=== PATIENT | female | born 2000 | race Caucasian/White ===

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

== ENCOUNTER → 2022-11-11 12:13 | Outpatient (CLI) | payer OTHER, SELFPAY ==
[2022-11-11 12:36] LABS: Add Manual Diff / Slide Review NO; Basophils Absolute Auto 100 /uL (0-100); Basophils Percent Auto 0.9 % (0-2); Eosinophils Absolute Auto 0 /uL (0-450); Eosinophils Percent Auto 0.1 % (2-4); Hematocrit 38.9 % (36-46); Hemoglobin 12.8 g/dL (12.0-16.0); Lymphocytes Absolute Auto 1100 /uL (1100-4500); Lymphocytes Percent Auto 17.1 % (25-40); Monocytes Absolute Auto 400 /uL (0-900); Monocytes Percent Auto 5.8 % (3-14); Neutrophils Absolute Auto 5100 /uL (1500-7000); Neutrophils Percent Auto 76.1 % (50-75); Platelet Count 196 X10^3/uL (150-400); Red Blood Cell Count 4.58 X10^6/uL (4.0-5.2); Red Cell Distribution Width 13.7 % (11.6-14.8); White Blood Cell Count 6.7 X10^3/uL (4.5-11.0)
[2022-11-11 13:41] LABS: Vitamin D 25 Hydroxy (D3) 21.5 ng/mL (30.0-100.0)
[2022-11-11 15:19] LABS: Free T4, Direct Thyroxine 1.59 ng/dL (0.78-2.19)
[2022-11-14 16:29] LABS: Folate 10.9 ng/mL (2.76-20.0); Vitamin B12 351 pg/mL (239-931)
== END ==
PROVIDERS: Family Provider Family Medicine; PCP Family Medicine; Referring Provider Family Medicine; Visit Provider Family Medicine
DX: R63.4 Abnormal weight loss (principal)
CPT/HCPCS: 36415; 82306; 82607; 82746; 84439; 84443; 85025

== ENCOUNTER 2022-11-16 13:29 | Emergency (ER) | payer OTHER, SELFPAY ==
[2022-11-16 14:16] VITALS: BP 157/102; PULSE 71; RESP 16; TEMP 36.9; O2SAT 99; BMI 17.5
--- NOTE | 2022-11-16 15:00 | DIET.CONS ---
Addendum entered by Fannie John 11/16/22 15:23: Pt requires total 1,300mL fluids (30mL/kg). Pt to flush tube with 60mL free water after each feed. Additional Fluids: Day 1-2: 955mL Day 3-4: 600mL Day 5 and beyond: 60mL free water flush after feeds. Original Note: Dietary Consultation Note Assessment: 22y F presenting to Emergency Department for feeding tube placement. Pt followed since by PCP Ranjit Jorge. Pt always has been picky eater, diagnosed with ARFID (avoidant restrictive feeding disorder) in 2017 and underwent intensive outpatient treatment for it. Pts provider concerned pt not receiving adequate intake via PO, desires placement of NG tube for enteral nutrition until pt sees [employer] via urgent referral through [facility] for consideration of G-tube placement. Pt currently seeing ARFID specialist weekly who referred her to PCP for referral to ED for feeding tube placement. Pt sees cardiology at [facility] for new dx POTS, this process has been ongoing since May 2022, the stress has been further limiting her PO intake from baseline of five foods: bread, cheese, goldfish crackers, milk, potatoes, juice, sometimes fruit in the summer to very limited foods and fluids. Dr. Jorge called this RD for help with enteral nutrition needs. Pt may need to be followed by home infusion [facility] for supplies. Ht: 157.48 cm Wt: 43.545 kg (-17% in 6mo, severe) BMI: 17.6 (underweight) UBW: 105-125# Nutrition Diagnosis: Severe Acute on Chronic Protein Calorie Malnutrition r/t disordered eating aeb pt with ARFID (avoidant restrictive feeding disorder), pt's POs meeting <25% EER x2w, BMI 17.6 (underweight), pt referred by PCP to ED for feeding tube placement. Interventions: 1. Recc placement of dobhoff NG tube for temporary enteral nutrition for this patient with acute on chronic ARFID and malnutrition until appointment with GI to discuss placement of g-tube. 2. Recc electrolyte repletion (K+, magnesium, phosphorus) if deficient prior to feed initiation. 3. Recc 100mg thiamin daily x5 days when initiating enteral nutrition. 4. Recc slow advancement of enteral nutrition starting at 350mL/d Jevity 1.2 on day 1 and 2, 700mL formula on days 3 and 4 and 1200mL formula from day 5 on to avoid refeeding syndrome. 5. Recc daily MVI. 6. Recc close f/u with PCP and ARFID specialist, referral to inpatient or outpatient eating therapy if needed. EER: 1,000-1200kcals/d (25-30kcals/kg per PCM), 50-60g PRO (1.2-1.4g/kg per PCM) Monitoring/Evaluations: Enteral formula tolerance Electronically Signed by: Fannie John 11/16/22 15:00 Clinical Dietitian [address] [address]
--- NOTE | 2022-11-16 16:03 | ED.NAVMDI ---
HPI - Nausea/Vomiting/Diarrhea General Chief complaint: Nausea/Vomiting/Diarrhea Stated complaint: Dr sent for feeding tube Time Seen by Provider: 11/16/22 15:47 Source: patient Mode of arrival: Ambulatory Limitations: no limitations History of Present Illness HPI Narrative: Patient is a 22-year-old female with history of issues with eating who saw her primary doctor today and was sent to the emergency department for placement of an NG tube. Patient is in agreement with this. She is also seen dietary prior to her visit here who is providing recommendations on tube feeding. She is here in the emergency department to have an NG tube placed. Related Data Home Medications Medication Instructions Recorded Confirmed Fluticasone Propionate (FLONASE) 1 spray intranasal QDAY ##0 12/12/10 03/22/19 norethindrone acetate 1 mg-ethinyl PO ##0 05/13/17 03/22/19 estradiol 20 mcg tablet (Microgestin) Previous Rx's Medication Instructions Recorded epinephrine 0.3 mg/0.3 mL 0.3 mg (0.3 mL) IM PRN PRN #1 pkg 06/20/17 injection, auto-injector (EpiPen 2-Dewey) azithromycin 250 mg tablet 1,000 mg PO ONCE #4 tabs 03/22/19 Allergies Allergy/AdvReac Type Severity Reaction Status Date / Time No Known Drug Allergies Allergy Verified 11/16/22 14:22 Review of Systems Constitutional Constitutional: Reports system reviewed and no additional complaints, except as documented Gastrointestinal Gastrointestinal: Reports system reviewed and no additional complaints, except as documented Patient History Social History Smoking Status: Never smoker Smoking Status: Never smoker alcohol intake frequency: holidays/special occasions only Substance Use Type: marijuana Exam Initial Vital Signs Initial Vital Signs: Vital Signs Temperature 98.5 F 11/16/22 14:16 Pulse Rate 71 11/16/22 14:16 Respiratory Rate 16 11/16/22 14:16 Blood Pressure 157/102 H 11/16/22 14:16 Pulse Oximetry 99 11/16/22 14:16 Oxygen Delivery Method Room Air 11/16/22 14:16 Const General: cooperative, comfortable and No ill appearing Resp Effort & Inspection: normal respiratory effort Cardio Rate: regular rate GI Inspection: non-distended Neuro General: patient alert and patient awake Extrem General: normal to inspection Course Orders Ordered: ED Orders 11/16/22 16:00 Basic Metabolic Panel Stat Magnesium Stat Phosphorous Stat 11/16/22 16:22 XR chest 1V Stat Discontinued Medications Lidocaine HCl (Lidocaine Viscous 2% 15 Ml Solution) 15 ml PO NOW ONE Stop: 11/16/22 16:05 Last Admin: 11/16/22 16:23 Dose: 15 ml Documented By: LORENZO Lidocaine HCl (Lidocaine Viscous 2% 15 Ml Solution) 15 ml PO NOW ONE Stop: 11/16/22 17:47 Vital Signs Vital signs: Vital Signs - 8 hr 11/16/22 14:16 11/16/22 18:10 Temperature 98.5 F Pulse Rate 71 75 Respiratory Rate 16 Blood Pressure 157/102 H 120/85 Pulse Oximetry 99 98 Oxygen Delivery Method Room Air Room Air MDM - Nausea/Vomiting/Diarrhea Lab Data Attestation: I reviewed the patient's lab results. 11/16/22 16:00 Labs: Lab Results 11/16/22 11/16/22 Range/Units 16:00 16:00 Sodium 140 (137-145) mmol/L Potassium 3.8 (3.4-5.1) mmol/L Chloride 106 (98-107) mmol/L Carbon Dioxide 25 (22-32) mmol/L BUN 11 (7-17) mg/dL Creatinine 0.60 (0.52-1.04) mg/dL Estimated GFR > 60 (>60) mL/min BUN/Creatinine Ratio 18.3 (6-22) Glucose 86 (70-100) mg/dL Calcium 9.0 (8.4-10.2) mg/dL Phosphorus 3.3 (2.5-4.5) mg/dL Magnesium 2.0 (1.6-2.3) mg/dL Imaging Data Chest x-ray: Radiologist's Impression: ROCEDURE:? XR CHEST 1V ? INDICATIONS:? NG TUBE PLACEMENT ? TECHNIQUE:? One view of the chest was acquired.? ? COMPARISON:? [facility], , CHEST 2 VIEW, 01/01/2012, 17:46. ? FINDINGS:? ? Surgical changes and devices:? Weighted tip enteric tube terminates in the region of the stomach. ? Lungs and pleura:? Lungs are clear.? No pleural effusions or pneumothorax.? ? Mediastinum:? Mediastinal contours appear normal.? Heart size is normal.? ? Bones and chest wall:? No suspicious bony lesions.? Overlying soft tissues appear unremarkable.? ? IMPRESSION:? Weighted tip enteric tube terminates in the stomach. ? Lungs are clear. MDM Narrative Medical decision making narrative: An 8 Romanian weighted NG tube was placed without issue. X-ray confirms placement. Primary provider will provide follow on prescriptions for tube feeding. She has 2 feeding available from dietitian already with her for the next 5 days. Will discharge patient home. Discharge Plan Departure Patient Disposition: Home Clinical Impression: Encounter for nasogastric (NG) tube placement Instructions: How to Care for Your Child's Nasogastric Tube Activity Restrictions/Additional Instructions: I do recommend that you follow-up with your primary doctor in follow all of the instructions given to by the charging crane operator. Return to the emergency department for new or worsening symptoms. Prescriptions: No Action Fluticasone Propionate (FLONASE) 1 spray Intranasal QDAY Qty: 0 norethindrone ac-eth estradiol [Microgestin 08/04 ()] 1-20 mg-mcg tablet PO Qty: 0 epinephrine [EpiPen 2-Dewey] 0.3 MG/0.3 ML auto-injector 0.3 mg IM PRN PRNQty: 1 0RF azithromycin 250 mg tablet 1,000 mg PO ONCE Qty: 4 0RF Referrals: Ranjit Jorge MD [Primary Care Provider] - Stand Alone Forms: Patient Portal/API
--- NOTE | 2022-11-16 16:22 | DI.RAD.S_ITS ---
PROCEDURE: XR CHEST 1V INDICATIONS: NG TUBE PLACEMENT TECHNIQUE: One view of the chest was acquired. COMPARISON: [facility], , CHEST 2 VIEW, 01/01/2012, 17:46. FINDINGS: Surgical changes and devices: Weighted tip enteric tube terminates in the region of the stomach. Lungs and pleura: Lungs are clear. No pleural effusions or pneumothorax. Mediastinum: Mediastinal contours appear normal. Heart size is normal. Bones and chest wall: No suspicious bony lesions. Overlying soft tissues appear unremarkable. IMPRESSION: Weighted tip enteric tube terminates in the stomach. Lungs are clear. Dictated by: Mirza Waller M.D. on 11/16/2022 at 17:39 Approved by: Mriza Waller M.D. on 11/16/2022 at 17:40
[2022-11-16] MEDS: LIDOCAINE VISCOUS 2% 15 ML SOLUTION PO (16:23)
[2022-11-16 16:34] LABS: BUN Creatinine Ratio 18.3 (6-22); Blood Urea Nitrogen 11 mg/dL (7-17); Carbon Dioxide 25 mmol/L (22-32); Chloride 106 mmol/L (98-107); Estimated Glomerular Filt Rate > 60 mL/min (>60); Glucose 86 mg/dL (70-100); HEMOLYSIS 49 (0-50); Phosphorous 3.3 mg/dL (2.5-4.5); Potassium 3.8 mmol/L (3.4-5.1); Sodium 140 mmol/L (137-145)
[2022-11-16 18:10] VITALS: BP 120/85; PULSE 75; O2SAT 98
== END 2022-11-16 18:25 | disposition home or self-care (01) ==
PROVIDERS: Emergency Provider Emergency Medicine; Family Provider Family Medicine; PCP Family Medicine
DX: Z46.59 Encounter for fitting and adjustment of other gastrointestinal appliance and device (principal)
CPT/HCPCS: 36415; 71045; 80048; 83735; 84100; 99283

== ENCOUNTER 2022-11-21 12:18 | Emergency (ER) | payer OTHER, SELFPAY ==
--- NOTE | 2022-11-21 | DI.RAD.S_ITS ---
PROCEDURE: XR CHEST 1V INDICATIONS: NG TUBE PLACEMENT TECHNIQUE: One view of the chest was acquired. COMPARISON: [facility], [facility], XR CHEST 1V, 11/16/2022, 16:19. [facility], [facility], CHEST 2 VIEW, 01/01/2012, 17:46. FINDINGS: Surgical changes and devices: Weighted tip enteric tube terminates in the region of the stomach. Lungs and pleura: Lungs are clear. No pleural effusions or pneumothorax. Mediastinum: Mediastinal contours appear normal. Heart size is normal. Bones and chest wall: No suspicious bony lesions. Overlying soft tissues appear unremarkable. IMPRESSION: Weighted tip enteric tube terminates in the region of the stomach. Lungs are clear. Dictated by: Mirza Waller M.D. on 11/21/2022 at 16:46 Approved by: Mirza Waller M.D. on 11/21/2022 at 16:46
[2022-11-21 12:43] VITALS: BP 115/74; PULSE 73; RESP 16; TEMP 36.9; O2SAT 100; BMI 18.0
--- NOTE | 2022-11-21 15:44 | ED.RECABL ---
HPI - Recheck/Abnormal Lab/Rx General Chief Complaint: Recheck/Abnormal Lab/Rx Stated Complaint: NG tube issue, says clogged or broken Time Seen by Provider: 11/21/22 15:11 Source: patient Mode of arrival: Ambulatory History of Present Illness HPI narrative: Patient is a 22-year-old female who has a restrictive eating disorder with complaint of NG tube not working. She was seen and evaluated here November 16 for placement of NG tube. She reports that is now clogged it does not drain or pull back and she can not use it. She is taken a sip or 2 of water. She reports that she is still urinating a little but has not had much in put Related Data Home Medications Medication Instructions Recorded Confirmed Fluticasone Propionate (FLONASE) 1 spray intranasal QDAY ##0 12/12/10 03/22/19 norethindrone acetate 1 mg-ethinyl PO ##0 05/13/17 03/22/19 estradiol 20 mcg tablet (Microgestin) Previous Rx's Medication Instructions Recorded epinephrine 0.3 mg/0.3 mL 0.3 mg (0.3 mL) IM PRN PRN #1 pkg 06/20/17 injection, auto-injector (EpiPen 2-Dewey) azithromycin 250 mg tablet 1,000 mg PO ONCE #4 tabs 03/22/19 Allergies Allergy/AdvReac Type Severity Reaction Status Date / Time No Known Drug Allergies Allergy Verified 11/16/22 14:22 Review of Systems Review of Systems ROS Unobtainable: All systems reviewed & are unremarkable except as noted in HPI and below Patient History Social History Smoking Status: Never smoker Smoking Status: Never smoker alcohol intake frequency: holidays/special occasions only Substance Use Type: marijuana Exam Initial Vital Signs Initial Vital Signs: Vital Signs Temperature 98.4 F 11/21/22 12:43 Pulse Rate 73 11/21/22 12:43 Respiratory Rate 16 11/21/22 12:43 Blood Pressure 115/74 11/21/22 12:43 Pulse Oximetry 100 11/21/22 12:43 Oxygen Delivery Method Room Air 11/21/22 12:43 GENERAL: Thin young 22-year-old female no acute distress CARDIOVASCULAR: peripheral pulses in tact, cap refill <2 sec EXTREMITIES: Normal range of motion, no clubbing or edema. Neurovascularly intact NEUROLOGICAL: Cranial nerves II through XII grossly intact. Normal gait and speech. SKIN: Warm, dry, no petechiae, no rashes or lesions. Course Orders Ordered: Discontinued Medications Lidocaine HCl (Lidocaine Viscous 2% 15 Ml Solution) 15 ml PO NOW ONE Stop: 11/21/22 16:14 Last Admin: 11/21/22 16:38 Dose: 15 ml Documented By: LORENZO Vital Signs Vital signs: Vital Signs - 8 hr 11/21/22 12:43 Temperature 98.4 F Pulse Rate 73 Respiratory Rate 16 Blood Pressure 115/74 Pulse Oximetry 100 Oxygen Delivery Method Room Air MDM - Recheck/Abnormal Lab/Rx Imaging Data Chest x-ray: My Impression: NG in place MDM Narrative Medical decision making narrative: Patient 22-year-old female here for NG replacement. Nurse tried to trouble shoe NG but unsuccessful. It was pulled and replaced. Confirmed by chest x-ray. Discharge Plan Departure Patient Disposition: Home Clinical Impression: Encounter for nasogastric (NG) tube placement Instructions: Enteral Feeding Activity Restrictions/Additional Instructions: *You have been diagnosed with feeding tube placed *What to do: Please be sure to stay hydrated *Continue to take medications as directed *Follow up with your primary care provider in 2-3 days or call [phone] *Return to ER if you should have any new, worsening or concerning symptoms Prescriptions: No Action Fluticasone Propionate (FLONASE) 1 spray Intranasal QDAY Qty: 0 norethindrone ac-eth estradiol [Microgestin 08/04 ()] 1-20 mg-mcg tablet PO Qty: 0 epinephrine [EpiPen 2-Dewey] 0.3 MG/0.3 ML auto-injector 0.3 mg IM PRN PRNQty: 1 0RF azithromycin 250 mg tablet 1,000 mg PO ONCE Qty: 4 0RF Referrals: Ranjit Jorge MD [Primary Care Provider] - Stand Alone Forms: Patient Portal/API
[2022-11-21] MEDS: LIDOCAINE VISCOUS 2% 15 ML SOLUTION PO (16:38)
== END 2022-11-21 17:11 | disposition home or self-care (01) ==
PROVIDERS: Emergency Provider Emergency Medicine; Family Provider Family Medicine; PCP Family Medicine
DX: Z46.59 Encounter for fitting and adjustment of other gastrointestinal appliance and device (principal); T85.598A Other mechanical complication of other gastrointestinal prosthetic devices, implants and grafts, initial encounter
CPT/HCPCS: 71045; 99283

== ENCOUNTER 2022-11-30 12:15 | Observation (INO) | payer OTHER, SELFPAY ==
[2022-11-30 12:40] VITALS: BP 117/75; PULSE 78; RESP 18; TEMP 37.2; O2SAT 99; BMI 18.3
--- NOTE | 2022-11-30 19:01 | ED.RECABL ---
HPI - Recheck/Abnormal Lab/Rx General Chief Complaint: Recheck/Abnormal Lab/Rx Stated Complaint: Feeding tube issues, came out Time Seen by Provider: 11/30/22 15:24 Source: patient Mode of arrival: Ambulatory History of Present Illness HPI narrative: Patient here with mother. This is the 3rd time the feeding tube/nasogastric tube has fallen out in 3 weeks. Patient has history of low thyroid and malnutrition. She has been working with primary care Dr. Ranjit Jorge as well as michael with dietitian here at this hospital. She has failed outpatient management. The in goal was to get a feeding tube/G-tube by surgery. At this time her counselor has spoken with primary care as encouraged for G-tube placement. Patient is motivated to have this done. Before replacing the NG tube they would like surgical consult. Otherwise no other complaints. She states she gets nauseous with the NG tube and started vomiting and it falls out. Related Data Home Medications Medication Instructions Recorded Confirmed dextroamphetamine-amphetamine ER 30 mg PO DAILY 11/30/22 11/30/22 30 mg 24hr capsule,extend release (Adderall XR) epinephrine 0.3 mg/0.3 mL 0.3 mg IM PRN PRN Allergic Reaction 11/30/22 11/30/22 injection, auto-injector (EpiPen 2-Dewey) gabapentin 100 mg capsule 100 mg PO TID 11/30/22 11/30/22 hydroxyzine HCl 10 mg tablet 10 mg PO QID 11/30/22 11/30/22 Allergies Allergy/AdvReac Type Severity Reaction Status Date / Time No Known Drug Allergies Allergy Verified 11/30/22 12:43 Review of Systems Review of Systems Narrative: GENERAL: negative chills, fatigue, malaise, fever, sweats. HEENT: negative sinus pain, ear pain, sore throat RESPIRATORY: negative dyspnea, cough CARDIOVASCULAR: negative chest pain, palpitations GASTROINTESTINAL: negative nausea, vomiting, abdominal pain : negative dysuria, frequency, hematuria MUSCULOSKELETAL: negative muscle or bony pain SKIN: negative rash, skin lesions NEUROLOGIC: negative weakness, numbness ROS Unobtainable: All systems reviewed & are unremarkable except as noted in HPI and below Patient History Social History household members: family Smoking Status: Never smoker alcohol intake: current Smoking Status: Never smoker alcohol intake frequency: holidays/special occasions only Substance Use Type: marijuana Exam Narrative Exam Narrative: GENERAL: in no distress, not toxic not dyspneic HEAD: Normocephalic. EYES: Pupils equal round ENT: Mucous membranes moist. NECK: Trachea midline. CARDIOVASCULAR: Regular rate and rhythm without murmurs RESPIRATORY: Clear to auscultation. Breath sounds equal bilaterally. No wheezes, rales, or rhonchi. GASTROINTESTINAL: Abdomen soft, non-tender bowel sounds are present no peritoneal signs EXTREMITIES: No gross deformities. BACK: No flank tenderness. NEURO: AOx4. SKIN: Warm and dry PSYCH: Not anxious, is cooperative Initial Vital Signs Initial Vital Signs: Vital Signs Temperature 99.0 F 11/30/22 12:40 Pulse Rate 78 11/30/22 12:40 Respiratory Rate 18 11/30/22 12:40 Blood Pressure 117/75 11/30/22 12:40 Pulse Oximetry 99 11/30/22 12:40 Oxygen Delivery Method Room Air 11/30/22 12:40 Course Orders Ordered: ED Orders 11/30/22 19:45 CBC Auto Diff [Complete Blood Count AUTO DIFF] Stat CMP [Comprehensive Metabolic Panel] Stat COVID19 - ADMIT (INSTRUMENTAL TEACHER swab/PCR) Stat Albuterol (Albuterol 2.5 Mg/3 Ml Neb (Adult)) 2.5 mg INH RTQ4HR PRN PRN Reason: Shortness Of Breath Cyclobenzaprine HCl (Cyclobenzaprine 10 Mg Tablet) 5 mg PO Q8HR ARLEN Gabapentin (Gabapentin 100 Mg Capsule) 100 mg PO TID ARLEN Hydroxyzine Pamoate (Hydroxyzine Pamoate 25 Mg Capsule) 25 mg PO Q6HR PRN PRN Reason: Nausea Sodium Chloride (Normal Saline 0.9%) 1,000 mls @ 125 mls/hr IV CONT ARLEN Last Infusion: 11/30/22 21:12 Dose: 0 mls/hr Documented By: Admin: 11/30/22 20:05 Dose: 125 mls/hr Documented By: YESSICA Sodium Chloride (Normal Saline 0.45%) 1,000 mls @ 125 mls/hr IV CONT ARLEN Ondansetron HCl (Ondansetron 4 Mg/2 Ml Inj) 4 mg IV Q4HR PRN PRN Reason: Nausea And Vomiting Discontinued Medications Albuterol (Albuterol Hfa Mdi 60 Puff/8 Gm Inhaler) 2 puff INH RTQ4HR PRN PRN Reason: Shortness Of Breath Vital Signs Vital signs: Vital Signs - 8 hr 11/30/22 19:17 Pulse Rate 65 Respiratory Rate 16 Blood Pressure 119/72 Pulse Oximetry 99 Oxygen Delivery Method Room Air MDM - Recheck/Abnormal Lab/Rx Lab Data 11/30/22 19:45 11/30/22 19:[address] [facility] Narrative Medical decision making narrative: Patient here with mother. This is the 3rd time the feeding tube/nasogastric tube has fallen out in 3 weeks. Patient has history of low thyroid and malnutrition. She has been working with primary care Dr. Ranjit Jorge as well as michael with dietitian here at this hospital. She has failed outpatient management. The in goal was to get a feeding tube/G-tube by surgery. At this time her counselor has spoken with primary care as encouraged for G-tube placement. Patient is motivated to have this done. Before replacing the NG tube they would like surgical consult. Otherwise no other complaints. She states she gets nauseous with the NG tube and started vomiting and it falls out. After history and exam possible replacement NG-tube however will need to page general surgery for consult [facility] CC: NG tube displacement Complicating co-morbidities: Hypothyroidism Data collected from: Mother and patient Medical records reviewed: Seen here November 16, 2022 November 21, 2022 for replacement of NG tube Differential considered: Includes but not limited to failure to thrive malnutrition Exam documented above, pertinent findings include: Nontender abdomen Lab Test results independently reviewed as above. Pertinent findings: WBC 6.7 hemoglobin 12.9 hematocrit 38 sodium 140 potassium 3.9 GFR greater than 60 AST 25 ALT 17, negative Imaging studies independently reviewed: None indicated Consultations: 7:[address] Richardson, general surgery, he will see patient in consult, possibly schedule patient for G-tube tomorrow, if not then on Sunday. Spoke with primary care on-call, Dr. Bunn, she will admit patient Treatments: Normal saline Re-evaluations: Spoke with patient and mother. They do desire G-tube placement as NG tube trials have failed Discussion: Upright for admission. Patient has failed outpatient trials NG nutrition. Counselor and michael with dietary have recommended patient get G-tube as well. Overall Dr. Jorge has planned for patient to have G-tube placement. Patient has lost at least 30 lb in the last 6-8 months. Patient has diagnosis of ARIF, a sensory disorder that prohibits dietary needs Diagnosis: Failure to thrive Discharge Plan Departure Patient Disposition: Admitted as Observation Clinical Impression: Adult failure to thrive Admit Date/Time: 11/30/22 19:30 Admit Provider: Ranjit Jorge
--- NOTE | 2022-11-30 19:12 | PC.NURSE ---
Pt with mom at bedside. Reports recurrent issues with NG feeding tube malfunctioning/now dislodged due to violent vomiting. Has had multiple visits for the same issue. Pt states she is interested in G tube placement. Pt also reports weight loss and poor nutrition due to feeding tube issues. Pt is tearful while talking about all the visits this has required.
[2022-11-30 19:17] VITALS: BP 119/72; PULSE 65; RESP 16; O2SAT 99
[2022-11-30 20:04] LABS: Add Manual Diff / Slide Review NO; Basophils Absolute Auto 0 /uL (0-100); Basophils Percent Auto 0.7 % (0-2); Eosinophils Absolute Auto 0 /uL (0-450); Eosinophils Percent Auto 0.5 % (2-4); Hemoglobin 12.9 g/dL (12.0-16.0); Lymphocytes Absolute Auto 1700 /uL (1100-4500); Lymphocytes Percent Auto 24.9 % (25-40); Mean Corpuscular HGB Conc 33.9 % (30-36); Mean Corpuscular Hemoglobin 28.2 PG (26-34); Mean Corpuscular Volume 83.3 fL (80-100); Monocytes Absolute Auto 400 /uL (0-900); Monocytes Percent Auto 6.6 % (3-14); Neutrophils Absolute Auto 4500 /uL (1500-7000); Neutrophils Percent Auto 67.3 % (50-75); Platelet Count 224 X10^3/uL (150-400); Red Blood Cell Count 4.56 X10^6/uL (4.0-5.2); Red Cell Distribution Width 13.4 % (11.6-14.8); White Blood Cell Count 6.7 X10^3/uL (4.5-11.0)
[2022-11-30] MEDS: SODIUM CHLORIDE 0.9% 1,000 ML 125 ML IV (20:05)
[2022-11-30 20:17] LABS: Alanine Aminotransferase 17 IU/L (<35); Albumin 4.7 g/dL (3.5-5.0); Albumin Globulin Ratio 1.6 (1.0-2.8); Alkaline Phosphatase 72 U/L (38-126); Aspartate Aminotransferase 25 IU/L (14-36); BUN Creatinine Ratio 21.3 (6-22); Bilirubin Total 0.7 mg/dL (0.2-1.3); Blood Urea Nitrogen 13 mg/dL (7-17); Calcium 9.3 mg/dL (8.4-10.2); Carbon Dioxide 23 mmol/L (22-32); Chloride 106 mmol/L (98-107); Estimated Glomerular Filt Rate > 60 mL/min (>60); Glucose 77 mg/dL (70-100); HEMOLYSIS < 15 (0-50); Potassium 3.9 mmol/L (3.4-5.1); Sodium 140 mmol/L (137-145); Total Protein 7.7 g/dL (6.3-8.2)
[2022-11-30 20:19] LABS: COVID19 - ADMIT (NP swab/PCR) Negative (Negative)
[2022-11-30 21:00] LABS: Pregnancy Test Serum,Qual Negative (Negative)
[2022-11-30 21:10] VITALS: BP 119/76; PULSE 68; RESP 20; TEMP 37.2; O2SAT 100; BMI 18.1
[2022-11-30] MEDS: SODIUM CHLORIDE 0.45% 1,000 ML 125 ML IV (22:17)
[2022-11-30] MEDS: hydrOXYzine pamoate 25 MG CAPSULE PO (22:17)
[2022-12-01] VITALS (17 sets, daily range): BP systolic 83–140; BP diastolic 47–90; PULSE 57–98; RESP 16–24; TEMP 36.2–37.3; O2SAT 22–100; BMI 18.1
[2022-12-01] MEDS: SODIUM CHLORIDE 0.45% 1,000 ML 125 ML IV (05:49)
[2022-12-01] MEDS: CYCLOBENZAPRINE 10 MG TABLET 5 MG PO ×2 (05:55→14:34)
[2022-12-01 07:24] LABS: Add Manual Diff / Slide Review NO; Basophils Absolute Auto 0 /uL (0-100); Basophils Percent Auto 0.6 % (0-2); Eosinophils Absolute Auto 100 /uL (0-450); Eosinophils Percent Auto 1.2 % (2-4); Hematocrit 37.8 % (36-46); Hemoglobin 12.8 g/dL (12.0-16.0); Lymphocytes Absolute Auto 1400 /uL (1100-4500); Lymphocytes Percent Auto 28.7 % (25-40); Mean Corpuscular HGB Conc 33.9 % (30-36); Mean Corpuscular Hemoglobin 28.7 PG (26-34); Mean Corpuscular Volume 84.4 fL (80-100); Monocytes Absolute Auto 300 /uL (0-900); Neutrophils Absolute Auto 3100 /uL (1500-7000); Neutrophils Percent Auto 62.5 % (50-75); Platelet Count 203 X10^3/uL (150-400); Red Blood Cell Count 4.47 X10^6/uL (4.0-5.2); Red Cell Distribution Width 13.3 % (11.6-14.8); White Blood Cell Count 4.9 X10^3/uL (4.5-11.0)
[2022-12-01 07:37] LABS: Alanine Aminotransferase 18 IU/L (<35); Albumin 3.8 g/dL (3.5-5.0); Albumin Globulin Ratio 1.4 (1.0-2.8); Alkaline Phosphatase 68 U/L (38-126); Aspartate Aminotransferase 27 IU/L (14-36); BUN Creatinine Ratio 18.5 (6-22); Bilirubin Total 0.7 mg/dL (0.2-1.3); Blood Urea Nitrogen 12 mg/dL (7-17); Calcium 8.5 mg/dL (8.4-10.2); Carbon Dioxide 24 mmol/L (22-32); Chloride 105 mmol/L (98-107); Estimated Glomerular Filt Rate > 60 mL/min (>60); Globulin 2.7 g/dL (1.7-4.1); Glucose 79 mg/dL (70-100); HEMOLYSIS < 15 (0-50); Potassium 3.4 mmol/L (3.4-5.1); Sodium 137 mmol/L (137-145); Total Protein 6.5 g/dL (6.3-8.2)
--- NOTE | 2022-12-01 09:11 | P.HP_ITS ---
History of Present Illness History of Present Illness Date Patient Seen: 12/01/22 Time Patient Seen: 09:11 Chief complaint: Feeding tube issues, came out Narrative: PT with extensive complex sensory processing issues with hyperreflexive gag function and failure to thrive presented to ED with third time of NG tube falling out this is her primary source of calories. Surgery consulted and exploring OR availability for PEG placement. If avilable will proceed, keep NPO for now - if unavailable will look to schedule outpatient for next week and think about NGT replacement for discharge plan. VSS, labs look ok. PFSH Social History household members: family Smoking Status: Never smoker alcohol intake: current Meds Home Medications and Allergies Home Medications Medication Instructions Recorded Confirmed Type dextroamphetamine-amphetamine ER 30 mg PO DAILY 11/30/22 11/30/22 History 30 mg 24hr capsule,extend release (Adderall XR) epinephrine 0.3 mg/0.3 mL 0.3 mg IM PRN PRN Allergic Reaction 11/30/22 11/30/22 History injection, auto-injector (EpiPen 2-Dewey) gabapentin 100 mg capsule 100 mg PO TID 11/30/22 11/30/22 History hydroxyzine HCl 10 mg tablet 10 mg PO QID 11/30/22 11/30/22 History Allergies Allergy/AdvReac Type Severity Reaction Status Date / Time No Known Drug Allergies Allergy Verified 11/30/22 12:43 Review of Systems Review of Systems Narrative: all systems reviewed and negative except as otherwise documented in HPI Exam Vital Signs (past 8 hours): - 12/01/22 06:19 12/01/22 08:11 Temperature 97.3 F L 98.4 F Pulse Rate 57 L 63 Respiratory Rate 17 16 Blood Pressure 105/67 97/64 Pulse Oximetry 100 100 Oxygen Flow Rate 0 0 Oxygen Delivery Method Room Air Oxygen Flow Rate 0 Narrative Exam Narrative: alert female in no distress on bed Const Nutritional Appearance: thin HENMT Head: normocephalic and atraumatic Resp Other: clear to auscultation bilaterally Cardio Other: regular rate and rhythm, S1/S2 GI Other: active bowel sounds nontender Neuro General: patient alert, patient awake, patient oriented x3 and moves all extremities Psych Speech and Movement: speech and movement normal Objective Labs 12/01/22 05:55 12/01/22 05:55 Labs: Laboratory Results - last 24 hr 11/30/22 11/30/22 11/30/22 19:45 19:45 19:45 WBC 6.7 RBC 4.56 Hgb 12.9 Hct 38.0 MCV 83.3 MCH 28.2 MCHC 33.9 RDW 13.4 Plt Count 224 Neut % (Auto) 67.3 Lymph % (Auto) 24.9 L [place] % (Auto) 6.6 Eos % (Auto) 0.5 L Baso % (Auto) 0.7 Neut # (Auto) 4500 Lymph # (Auto) 1700 [place] # (Auto) 400 Eos # (Auto) 0 Baso # (Auto) 0 Sodium 140 Potassium 3.9 Chloride 106 Carbon Dioxide 23 BUN 13 Creatinine 0.61 Estimated GFR > 60 BUN/Creatinine Ratio 21.3 Glucose 77 Calcium 9.3 Total Bilirubin 0.7 AST 25 ALT 17 Alkaline Phosphatase 72 Total Protein 7.7 Albumin 4.7 Globulin 3.0 Albumin/Globulin Ratio 1.6 Serum , Qual SARS-CoV-2 (PCR) Negative 11/30/22 12/01/22 12/01/22 19:45 05:55 05:55 WBC 4.9 RBC 4.47 Hgb 12.8 Hct 37.8 MCV 84.4 MCH 28.7 MCHC 33.9 RDW 13.3 Plt Count 203 Neut % (Auto) 62.5 Lymph % (Auto) 28.7 [place] % (Auto) 7.0 Eos % (Auto) 1.2 L Baso % (Auto) 0.6 Neut # (Auto) 3100 Lymph # (Auto) 1400 [place] # (Auto) 300 Eos # (Auto) 100 Baso # (Auto) 0 Sodium 137 Potassium 3.4 Chloride 105 Carbon Dioxide 24 BUN 12 Creatinine 0.65 Estimated GFR > 60 BUN/Creatinine Ratio 18.5 Glucose 79 Calcium 8.5 Total Bilirubin 0.7 AST 27 ALT 18 Alkaline Phosphatase 68 Total Protein 6.5 Albumin 3.8 Globulin 2.7 Albumin/Globulin Ratio 1.4 Serum , Qual Negative SARS-CoV-2 (PCR) Assessment & Plan Assessment & Plan narrative: #avoidant restrictive feeding disorder #functional anorexia #failure to thrive PT has been requiring NG tubefeeds but NG tube is constantly getting displaced this is her only source of calories, Dr. Richardson is evaluating for PEG placement today Keep NPO until then continue meds #MDD stable continue home meds #ADHD hold home meds while inpt PCP: Ania Diet: NPO MDM: Lupe Petty [phone] or [phone] - I spoke with them regarding plan Quality VTE Deep Vein Thrombosis/Pulmonary Embolism Present on Admission: No
[2022-12-01] MEDS: GABAPENTIN 100 MG CAPSULE PO ×3 (09:24→20:31)
--- NOTE | 2022-12-01 11:30 | DIET.CONS ---
Addendum entered by Emilee Presley 12/01/22 17:54: Reviewed nutrition recs, flushes, and fluid needs for PEG with pt prior to PEG placement. Pt verbalized understanding. RD f/u 1 day. Original Note: Dietary Consultation Note Admission Date: 11/30/2022 19:30 Assessment: 22[address] team. Plan for PEG placement today. States NG keeps being displaced after about one week of use d/t vomiting. Endorses 720kcal min of feeds per day + one snack. Approx 1000-1200kcals per day. Barriers to full feeds is the time it has taken with gravity feeds, especially as she tries to hold a job. States she just received her TF pump today with Jevity 1.2 formula. This along with switch to PEG should help with time it takes for her to complete feeds. +1.587kg since 11/16 consult. Discussed coordination with [facility] with CM. Ht: 157.48 cm Wt: 45.132 kg BMI: 18.1 Last BM: 11/30/22 (11/30/22 21:10) MNA: 5 Prateek Score: 19 Diet: 12/01/22 09:10 NPO Diet Diet Modifications: NPO Type: NPO NOW for Procedure Labs: RBC 4.47 X10^6/uL (4.0-5.2) 12/01/22 05:55 Hgb 12.8 g/dL (12.0-16.0) 12/01/22 05:55 Hct 37.8 % (36-46) 12/01/22 05:55 Creatinine 0.65 mg/dL (0.52-1.04) 12/01/22 05:55 Nutrition Diagnosis: Severe Acute on Chronic Protein Calorie Malnutrition r/t disordered eating aeb pt with ARFID (avoidant restrictive feeding disorder) BMI 18.1 (underweight), h/o pt referred by PCP to ED for feeding tube placement Interventions: 1. Recc placement of PEG tube for enteral nutrition for this patient with acute on chronic ARFID and malnutrition 2. Recc electrolyte repletion prn 3. Recc advancement of enteral nutrition as tolerated. May start at 1000-1200mL/d Jevity 1.2 on day 1-2 and between 1200-1300mL formula from day 3 going forward as tolerated. Reduced risk of refeeding with home TF use and approx [phone] kcals per day reported. 4. Recc daily MVI. 5. Recc close f/u with PCP and ARFID specialist, referral to inpatient or outpatient eating therapy if needed. EER: 1400-1600kcals/d (30-35kcal/kg per PCM and h/o disordered eating) 60-73g PRO (1.3-1.6g/kg per PCM and h/o disordered eating) 1350ml fluids per day (30ml/kg- including PO) 872-1065ml fluids from feed water 30-60ml/flush after bolus 285-478ml fluids needed from flushes and/or PO Monitoring/Evaluations: RD f/u 2-3 days, monitoring tolerance of formula Electronically Signed by: Emilee Presley 12/01/22 11:30 Clinical Dietitian [address] [address]
[2022-12-01] MEDS: POTASSIUM CHLORIDE IN WATER 10 MEQ/100 ML PIGGYBACK 100 MEQ IV ×2 (11:45→12:18)
--- NOTE | 2022-12-01 12:43 | P.CONS_ITS ---
History of Present Illness Consult details Date Patient Seen: 12/01/22 Time Patient Seen: 12:43 Chief complaint: Feeding tube issues, came out Narrative: 22-year-old woman admitted to the hospital with failure to thrive. She has been working with her primary care provider Dr. Jorge for quite some time in regards to her malnutrition. Apparently she has avoidant restrictive feeding disorder and she has developed severe protein malnutrition due to her inability to eat. She she has a normal swallow function. She has been receiving nasogastric tube feeds for the past 1 month but has recurrent issues with the NG tube becoming dislodged. General surgery is consulted for feeding tube placement. Meds Home Medications and Allergies Home Medications Medication Instructions Recorded Confirmed Type dextroamphetamine-amphetamine ER 30 mg PO DAILY 11/30/22 11/30/22 History 30 mg 24hr capsule,extend release (Adderall XR) epinephrine 0.3 mg/0.3 mL 0.3 mg IM PRN PRN Allergic Reaction 11/30/22 11/30/22 History injection, auto-injector (EpiPen 2-Dewey) gabapentin 100 mg capsule 100 mg PO TID 11/30/22 11/30/22 History hydroxyzine HCl 10 mg tablet 10 mg PO QID 11/30/22 11/30/22 History Allergies Allergy/AdvReac Type Severity Reaction Status Date / Time No Known Drug Allergies Allergy Verified 11/30/22 12:43 Exam Vital Signs (past 8 hours): - 12/01/22 06:19 12/01/22 08:11 Temperature 97.3 F L 98.4 F Pulse Rate 57 L 63 Respiratory Rate 17 16 Blood Pressure 105/67 97/64 Pulse Oximetry 100 100 Oxygen Flow Rate 0 0 Oxygen Delivery Method Room Air Oxygen Flow Rate 0 Narrative Exam Narrative: General adult woman cachectic alert oriented no acute distress Chest nonlabored respiration Abdomen soft nontender nondistended Extremities warm well perfused Objective Labs 12/01/22 05:55 12/01/22 05:55 Labs: Laboratory Results - last 24 hr 11/30/22 11/30/22 11/30/22 19:45 19:45 19:45 WBC 6.7 RBC 4.56 Hgb 12.9 Hct 38.0 MCV 83.3 MCH 28.2 MCHC 33.9 RDW 13.4 Plt Count 224 Neut % (Auto) 67.3 Lymph % (Auto) 24.9 L [place] % (Auto) 6.6 Eos % (Auto) 0.5 L Baso % (Auto) 0.7 Neut # (Auto) 4500 Lymph # (Auto) 1700 [place] # (Auto) 400 Eos # (Auto) 0 Baso # (Auto) 0 Sodium 140 Potassium 3.9 Chloride 106 Carbon Dioxide 23 BUN 13 Creatinine 0.61 Estimated GFR > 60 BUN/Creatinine Ratio 21.3 Glucose 77 Calcium 9.3 Total Bilirubin 0.7 AST 25 ALT 17 Alkaline Phosphatase 72 Total Protein 7.7 Albumin 4.7 Globulin 3.0 Albumin/Globulin Ratio 1.6 Serum , Qual SARS-CoV-2 (PCR) Negative 11/30/22 12/01/22 12/01/22 19:45 05:55 05:55 WBC 4.9 RBC 4.47 Hgb 12.8 Hct 37.8 MCV 84.4 MCH 28.7 MCHC 33.9 RDW 13.3 Plt Count 203 Neut % (Auto) 62.5 Lymph % (Auto) 28.7 [place] % (Auto) 7.0 Eos % (Auto) 1.2 L Baso % (Auto) 0.6 Neut # (Auto) 3100 Lymph # (Auto) 1400 [place] # (Auto) 300 Eos # (Auto) 100 Baso # (Auto) 0 Sodium 137 Potassium 3.4 Chloride 105 Carbon Dioxide 24 BUN 12 Creatinine 0.65 Estimated GFR > 60 BUN/Creatinine Ratio 18.5 Glucose 79 Calcium 8.5 Total Bilirubin 0.7 AST 27 ALT 18 Alkaline Phosphatase 68 Total Protein 6.5 Albumin 3.8 Globulin 2.7 Albumin/Globulin Ratio 1.4 Serum , Qual Negative SARS-CoV-2 (PCR) [facility] Social History household members: family Tobacco & Substance Use Smoking Status: Never smoker alcohol intake: current Assessment & Plan Assessment and plan (1) Avoidant and restrictive food intake disorder: Status: Acute Assessment & Plan narrative: 22-year-old woman with failure to thrive and severe protein malnutrition secondary to avoidant and restrictive food intake disorder. She has failed tube feedings via a nasogastric tube and the patient as well as her providers are requesting a percutaneous endoscopic gastrostomy tube placement. Overview of the operation was discussed with the patient. Operative risks including hemorrhage, infection, damage to surrounding structures, gastric leak an anesthetic complications were discussed. Questions have been answered and she is in agreement with this plan. -OR today for PEG
[2022-12-01] MEDS: SODIUM CHLORIDE 0.9% 1,000 ML 125 ML IV (13:50)
--- NOTE | 2022-12-01 14:25 | CM.DANOTE ---
Patient is a 22 yo female who was admitted on 11/30/22 for Feeding Issues. Pt has REG PPO for insurance and her PCP is Dr. Ranjit Jorge. EMR was reviewed. Per MD, pt with ongoing sensory issues which has been limiting her ability to get adequate nutrition and attempted tube feeding outpt and pt failed and therefore admitted for PEG tube placement for nutrition. Per Tour Director, been attempting to coordinate formula with [facility] and PCP prior to admission. Pt's current formulary will remain the same at d/c with PEG and they will put updated note. SW called [facility] Janis [phone] and she confirms they mailed out her formula and should arrive by this weekend. They will just need the d/c summary and PEG placement note faxed to them at discharge but did not know which fax number yet at this time. SW met bedside with pt and explained role and she confirms she moved back in with her mom in [place] recently due to her ongoing nutrition needs/challenges. Pt confirms that she just received her formula from [facility] today and is aware of PEG placement in OR this evening around 1700. Pt currently does not anticipate any needs and states her mom is supportive. Plan: SW to follow for PEG placement this evening and confirmation of adequate nutrition intake before plan of d/c home with [facility] for ongoing enteral feeding and faxing d/c packet at discharge. MARSHA Robles Discharge Planning/Care Management CM Discharge Assessment Start: 12/01/22 14:24 Freq: Status: Active Protocol: Document 12/01/22 14:24 BF (Rec: 12/01/22 14:25 [id number]) Discharge Planning Assessment Assigned Stone Grader MARSHA Galloway DPOA/Assigned Designee Name informally mother Contact Information [phone] Advance Directives? No Advance Directives on File No History Provided By Patient,Medical Record Has Patient been admitted in last 30 No days? Prior Living Arrangements House Household Members family Type of transporation used prior to Drives own vehicle admit Independent with ADL's Yes Is patient alert and oriented? Yes Needs Assistance With Managing Medications Caregiver for Another No Comment Open recently with [facility] for enteral feeding Discharge Plan Home [facility] IV Therapy Transportation Arrangement mother to transport Additional Comment Fax d/c summary, PEG note, and order to [facility] at d/c Whiteboard Updated in Patient Room with Yes name and ext. # of Stone Grader Review Status In Process Please Provide Date Initial DC 12/01/22 Assessment Was Performed Next Review Type Continued Stay Review
[2022-12-01] MEDS: hydrOXYzine pamoate 25 MG CAPSULE PO ×2 (14:35→20:31)
--- NOTE | 2022-12-01 15:37 | PC.NURSE ---
Day shift: Pt down to surgery for PEG placement at approx 1535.
--- NOTE | 2022-12-01 16:52 | SUR.OPER ---
Supine on padded stretcher in ENDO room, head on pillow, arms tucked at sides, legs uncrossed.
--- NOTE | 2022-12-01 16:53 | SUR.OPER ---
Lidocaine 1% 5ml vial used from PE tube kit for PEG tube placement.
--- NOTE | 2022-12-01 17:13 | P.OP_ITS ---
Operative Date/Time/Diagnoses Date of procedure: 12/01/22 Time of procedure: 17:13 Pre-op diagnosis: Failure to thrive Post-op diagnosis: same Procedure & Clinicians Procedure: Percutaneous endoscopic gastrostomy tube placement Same procedure as scheduled: Yes Indications: 22-year-old woman with failure to thrive and severe protein calorie m alnutrition. She is here today for a PEG tube placement. Surgeon: Jeremías Richardson Anesthesia Type: General Operative Notes Findings: Bumper at 3 cm to the skin. Peg tube rotates easily and Estimated Blood Loss (mL): 10 Procedure in detail: Patient was brought to the operating room and placed supine on the bed. Anesthesia was induced. He was prepped and draped in sterile fashion. Time-out was performed. The endoscope was inserted into the mouth and advanced down the esophagus into the stomach. Stomach was insufflated and a spot on the left upper quadrant was selected over the greater curvature. Skin was anesthetized and a incision was made and then the needle was introduced through the skin into the stomach. The guidewire was then introduced through the needle and was grasped with the wire within the scope and the scope was removed. This point the PEG tube was attached to the guidewire and then the tube was then drawn through the mouth into the stomach and out through the anterior abdominal wall. The bumper plate was applied and it was snug at 3 cm from the skin. The endoscope was then reinserted into the stomach and I observed that the PEG tube rotated freely. Patient tolerated the procedure well and was transferred to recovery in stable condition. Complications: none Post-operative Condition: stable Disposition: Acute Care
[2022-12-01] MEDS: LACTATED RINGERS 1,000 ML 42 ML IV (17:18)
--- NOTE | 2022-12-01 18:02 | PC.NURSE ---
Day shift: Pt back in room from PACU at approx 1800. PEG tube site patent with scant amount of shadow drainage present at PEG side. VS remain WNL. RA 99%. She did ask, with Dr Rios present, when does the pain go away?. Will continue with post-op plan of care. Call light in reach. Bed alarm is on. Pt also wanting to void upon arrival.
[2022-12-01] MEDS: ACETAMINOPHEN 325 MG TABLET 650 MG PO (18:12)
[2022-12-01] MEDS: HYDROMORPHONE 0.5 MG INJ IV ×2 (18:49→20:31)
[2022-12-01] MEDS: OXYCODONE IR 10 MG TABLET PO (21:02)
[2022-12-01] MEDS: ONDANSETRON 4 MG/2 ML INJ IV (21:03)
--- NOTE | 2022-12-01 22:31 | PC.NURSE ---
cnc machinist 2nd shift: Patient's pain not controlled with IV 0.5mg dilaudid and PO tylenol. Contacted on-call MD ricks - Dr. Rios - and he ordered 10mg PO oxycodone Q4hrs PRN pain. This provided improved pain control, per patient report. Dr. Rios also ok'ed patient to eat by mouth, no need to be NPO. Plan for tube feeds to start tomorrow AM at 0800.
[2022-12-02] MEDS: ONDANSETRON 4 MG/2 ML INJ IV ×3 (01:05→10:02)
[2022-12-02] MEDS: OXYCODONE IR 10 MG TABLET PO ×4 (01:05→14:06)
[2022-12-02] MEDS: HYDROMORPHONE 0.5 MG INJ IV ×2 (01:05→06:54)
[2022-12-02] MEDS: CYCLOBENZAPRINE 10 MG TABLET 5 MG PO ×2 (05:09→13:34)
[2022-12-02 05:34] VITALS: BP 117/63; PULSE 69; RESP 18; TEMP 37.1; O2SAT 95
--- NOTE | 2022-12-02 07:29 | DI.RAD.S_ITS ---
PROCEDURE: XR ABDOMEN 1V INDICATIONS: new PEG, peg tube placement TECHNIQUE: One view of the abdomen acquired. COMPARISON: None. FINDINGS: Surgical changes and devices: Gastrostomy is present. Bowel: Bowel gas pattern is normal. Soft tissues: No suspicious abdominal calcifications. Visualized solid organ contours appear normal in size. Bones: No suspicious bony lesions. IMPRESSION: Postsurgical sequelae. Dictated by: Jc Fisher M.D. on 12/02/2022 at 8:09 Approved by: Jc Fisher M.D. on 12/02/2022 at 8:09
[2022-12-02] MEDS: ACETAMINOPHEN 325 MG TABLET 650 MG PO (08:37)
[2022-12-02] MEDS: hydrOXYzine pamoate 25 MG CAPSULE PO (08:38)
[2022-12-02] MEDS: GABAPENTIN 100 MG CAPSULE PO ×2 (08:38→13:34)
[2022-12-02 09:08] VITALS: BP 108/71; PULSE 60; RESP 16; TEMP 36.7; O2SAT 97
[2022-12-02] MEDS: SODIUM CHLORIDE 0.45% 1,000 ML 125 ML IV (10:04)
--- NOTE | 2022-12-02 10:28 | PM.PN.1 ---
Subjective Subjective Date Patient Seen: 12/02/22 Time Patient Seen: 10:00 Interval history: CC: NG tube dislodged this hurts a lot Pt feeling ok now POD #1 pain is controlled with IV dilaudid and PO oxy - PEG tube looks good this morning we will try to start Jevity 1.2 feeds and see how it goes goal is to transition to oral meds and confirm good throughput on PEG tube. Having some nausea. Exam Vital Signs (past 8 hours): - 12/02/22 05:34 12/02/22 09:08 Temperature 98.8 F 98.1 F Pulse Rate 69 60 Respiratory Rate 18 16 Blood Pressure 117/63 108/71 Pulse Oximetry 95 97 Oxygen Flow Rate 0 Oxygen Delivery Method Room Air Oxygen Flow Rate 0 Narrative Exam Narrative: thin female laying in bed Const Nutritional Appearance: thin Cardio Other: mildly elevated rate, normal rhythm S1/S2 GI Other: PEG tube in place, minimal/no discharge around tube entry dressing, decreased bowel sounds Neuro General: patient alert, patient awake, patient oriented x3, tone normal and moves all extremities Psych Speech and Movement: speech and movement normal Objective Labs 12/01/22 05:55 12/01/22 05:55 [facility] Social History household members: family Smoking Status: Never smoker alcohol intake: current Assessment & Plan Assessment & Plan narrative: #avoidant restrictive feeding disorder #functional anorexia #failure to thrive #PEG tube Pt has been requiring NG tubefeeds but NG tube is constantly getting displaced this is her only source of calories, Dr. Richardson placed PEG yesterday looks good this morning Resume Jevity 1.2 feeds this morning #MDD stable continue home meds #ADHD hold home meds while inpt PCP: Ania Diet: NPO MDM: Lupe Petty [phone] - I spoke with them regarding plan Dispo: home if tube feeds resumed and IV meds dc'd Quality VTE Deep Vein Thrombosis/Pulmonary Embolism Present on Admission: No
--- NOTE | 2022-12-02 12:12 | PM.DS.1 ---
History of Present Illness History of Present Illness Date Patient Seen: 12/02/22 Time Patient Seen: 12:13 Chief complaint: Feeding tube issues, came out Narrative: doing well this afternoon, tube feeding proceeding well without incident, feels full, no pain with use of tube, no backflow, no discharge. pain controlled with orals just some nausea she has zofran at home feels ready to go. Discharge Providers Provider Date of admission: 11/30/22 19:30 Discharge Date: 12/02/22 Primary care physician: Ranjit Jorge MD Consults: 11/30/22 21:26 Consult to Dietitian, Adult Routine Comment: Reason For Exam: malnutrituion. Consult to General Surgery Routine Comment: Consulting Provider: Jeremías Richardson Reason for consultation: PEG Placement Discharge provider: Kyle Rios MD Summary Hospital Course Discharge Diagnosis: #avoidant restrictive feeding disorder #functional anorexia #failure to thrive #PEG tube #MDD #ADHD Hospital Course: PT with extensive complex sensory processing issues with hyperreflexive gag function and failure to thrive presented to ED with third time of NG tube falling out this is her primary source of calories. Surgery consulted and placed PEG tube yesterday without incident, pt tolerated well and today was able to resume tube feeds and get her pain controlled with oral meds. Status at Discharge Cognitive/behavioral status at discharge: at baseline, oriented Functional status at discharge: independent ambulation Overall status at discharge: patient is progressing back to baseline Exam Vital Signs (past 8 hours): - 12/02/22 05:34 12/02/22 09:08 Temperature 98.8 F 98.1 F Pulse Rate 69 60 Respiratory Rate 18 16 Blood Pressure 117/63 108/71 Pulse Oximetry 95 97 Oxygen Flow Rate 0 Oxygen Delivery Method Room Air Oxygen Flow Rate 0 Narrative Exam Narrative: alert thin female on bed Const General: cooperative, comfortable and well developed Nutritional Appearance: thin HENMT Head: normocephalic and atraumatic Resp Other: moving air well unlabored breathing on room air Cardio Other: S1/S2 GI Other: PEG in place recieving tube feeds well no discharge or bleeding around tube Skin General: no rashes or lesions noted Neuro General: patient alert, patient awake, patient oriented x3, tone normal and moves all extremities Psych Speech and Movement: speech and movement normal Objective Labs 12/01/22 05:55 12/01/22 05:55 ON LICENSE OF [facility] Social History household members: family Smoking Status: Never smoker alcohol intake: current Discharge Assessment & Plan Assessment and Plan Assessment: #avoidant restrictive feeding disorder #functional anorexia #failure to thrive #PEG tube Pt has been requiring NG tubefeeds but NG tube is constantly getting displaced this is her only source of calories, Dr. Richardson placed PEG yesterday looks good this morning Doing well on home Jevity 1.2 feeds, continue same keep tube protected under tape and clothes #MDD stable continue home meds #ADHD hold home meds while inpt PCP: Ania Diet: NPO MDM: Lupe Petty [phone] Dispo: home with tube feeds resumed and IV meds dc'd - may need work note to stay home tomorrow also -f/u with PCP Discharge Plan Discharge Plan Patient Disposition: Home Discharge orders & Medications Prescriptions: New oxycodone 10 mg Tablet 5 mg PO Q4HR PRN (Reason: Pain, Severe (7-10)) Qty: 12 0RF Continued gabapentin 100 mg capsule 100 mg PO TID Patient Comments: TAKE 1 CAPSULE BY MOUTH THREE TIMES DAILY dextroamphetamine-amphetamine [Adderall XR] 30 mg capsule,extended release 24hr 30 mg PO DAILY Patient Comments: Take 1 capsule by mouth once a day hydroxyzine HCl 10 mg tablet 10 mg PO QID Patient Comments: Take 1 tablet by mouth four times a day May be sedating. epinephrine [EpiPen 2-Dewey] 0.3 MG/0.3 ML auto-injector 0.3 mg IM PRN PRN (Reason: Allergic Reaction) Follow up/Referrals: Ranjit Jorge MD [Primary Care Provider] - Visit Report/Discharge Packet Stand Alone Forms: Patient Portal/API, Stroke Signs & Symptoms Discharge Data Primary Care Provider: Ranjti Jorge Attending Provider: Wilda Bunn Admit Date/Time: 11/30/22 19:30 Quality VTE Deep Vein Thrombosis/Pulmonary Embolism Present on Admission: No
[2022-12-02] MEDS: PROMETHAZINE 25 MG TABLET 12.5 MG PO (13:36)
--- NOTE | 2022-12-02 15:32 | CM.DPNOTE ---
Discharge Planning Note: Note that patient has discharge orders this afternoon. Called [facility] ([facility]) to resume services for Jevity feedings to be the same. Patient has supply. Will fax orders to [facility] [phone] Spoke with her nurse and patient has already been discharged. She had agreed to Home Health, provided referral to [facility] who will follow up on Sunday. Margarita Roger RN/DCP
--- NOTE | 2022-12-04 09:32 | CM.DPC ---
DCP Cont: Received a call from Janis at [facility]. She is requesting a copy of the operative report from the showing PEG tube placement. Her fax number is: [phone]. Faxed information over to her. Patient discharged on the . Judit Ko RN/Alteration Workroom Supervisor
== END 2022-12-02 15:00 | disposition home or self-care (01) ==
LOC: ED 18:10 → AC 19:30
PROVIDERS: Surgery; Admitting Provider Family Medicine; Emergency Provider Emergency Medicine; Family Provider Family Medicine; PCP Family Medicine; Visit Provider Family Medicine
PROC: 0DH63UZ Insertion of Feeding Device into Stomach, Percutaneous Approach (ICD-10-PCS; CPT 43246; principal; 2022-12-01 17:15)
DX: F50.82 Avoidant/restrictive food intake disorder (principal); R62.7 Adult failure to thrive; E43 Unspecified severe protein-calorie malnutrition
CPT/HCPCS: 43246; 36415; 74018; 80053; 84703; 85025; 87635; 99221; 99283; C9803; G0378; J1170; J2250; J2405; J2704; J3010; J7050

== ENCOUNTER → 2023-01-10 14:37 | Outpatient (CLI) | payer OTHER, SELFPAY ==
--- NOTE | 2023-01-10 14:40 | DIET.CONS ---
Dietary Consultation Note Assessment: 22[address] outpatient visit for help with meeting nutrition needs via enteral nutrition secondary to ARFID. Pt had g-tube placed 5w ago because of malnutrition and dehydration from ARFID. Pt states her energy is improving some but she is not seeing the weight gain she had hoped for and finds five feeds per day difficult to attain. Pt has tried taking two cans of formula at one time but it causes her to feel overfull. Pt states thyroid stopped working because of malnutrition. Will have f/u with PCP to test once normonourished. Pt would like to start working with a personal injury legal assistant to build lean body mass. Current Plan: Jevity 1.2, 5 cans per day providing 1400kcals and 65g protein. Ht: 5'2 Wt: 101.5# BMI: 18.6 (+0.5 BMI in 5w) Interventions: 1. Recc switch to Jevity 1.5 for more concentrated formula so pt can reduce feeds to 4x/d rather than 5 while getting adequate nutrition. 2. Recc pt get labs from PCP in 2mo to test thyroid function, folate, iron, and vitamin D status. Monitoring/Evaluations: f/u with RD for continued weight monitoring and counselling regarding ARFID. Electronically Signed by: Fannie John 01/10/23 14:40 Clinical Dietitian [address] [address]
== END ==
PROVIDERS: Family Provider Family Medicine; PCP Family Medicine; Referring Provider Family Medicine; Visit Provider Family Medicine
DX: F50.82 Avoidant/restrictive food intake disorder (principal); Z68.1 Body mass index [BMI] 19.9 or less, adult; Z71.3 Dietary counseling and surveillance
CPT/HCPCS: 97802

== ENCOUNTER → 2023-06-18 14:36 | Outpatient (CLI) | payer OTHER, SELFPAY ==
--- NOTE | 2023-06-18 14:39 | DIET.CONS ---
Dietary Consultation Note Pt agreed to telehealth visit transitioned to phone due to connectivity errors. Assessment: 22y [address] f/u for help with ARFID (avoidant/restrictive feeding disorder) currently in intensive day program at [facility] in [place], [place] for the past ~6w. Pt had PEG tube placed in late November 2022 after experiencing severe weight loss due to texture aversion, so much so that she had difficulty swallowing water. Pt has had severe feeding difficulty throughout her life due to texture aversion and fear of food/liquids in mouth. Pt wants to be healthy and fit, would like to achieve 120# without needing to focus on weight number penitentiary, instead focus on health and wellbeing. Prior to admission to [facility], pt had been using both formula and homemade smoothies to nourish herself. She felt the reduced pressure of PO intake was helpful for her to focus on supporting her anxiety/depression/ADHD. Once using PEG tube, pt decided she needed increased acuity to support her mental health and was admitted to intensive treatment. Pt's lowest adult weight was 91# (BMI 16.6, underweight) prior to PEG placement, pt was 101.5# (BMI 18.8) last visit with this RD on 01/10/23. Pt states she is currently 102-106# with goal ~120#. Pt expressed to this RD she feels she has regressed since admission due to center encouraging her to consume 4 cans formula plus two snacks and a meal daily. Pt expresses food at [facility] is not within the range of textures she is comfortable eating and is often sitting for 15min+ before being served lukewarm. Pt upset some want her PEG to be removed when she feels like she worked really hard to get it placed less than 9 months ago, doesn't feel she is being heard. Pt very interested in being followed by RD and finding therapist who can help her with motivation and goal setting in outpatient setting. Pt is having menses. During treatment has been taking phosphorus supplement due to borderline low phos (per pt report) Center Plan: 4 formulas, 2 snacks and one lunch, 3L fluid Pt achieving (per pt): 3-4 formulas, part of lunch, one snack ([employer] bar, string cheese) night time junk food, pt mostly hydrating through PEG. Pt states she is starting to feel nausea during the day which she identifies as hunger, pt feels this is a positive thing as she is working to identify hunger cues. Ht: 5'2 Wt: 102-106# BMI: 18.6-19.4 UBW: 115-120# (BMI 21.9) Nutrition Diagnosis: inadequate PO intake r/t feeding difficulty aeb pt with dx ARFID, PEG for nourishment and fluids due to protein calorie malnutrition dx 6mo ago, pt at risk for malnutrition until ARFID better managed. Interventions: 1. Recc continued weekly visits with pt to support nutrition status. 2. Recc pt look into [facility] in [place] for therapist to help with goal-directed therapy. 3. Recc continued intake Jevity 1.2 five cans per day or less if pt eating meals/snacks with goal of maintaining current weight and moving toward weight goal. EER: 1600kcals (35kcal/kg), 65g PRO (1.3g/kg), ~1.6L fluids (30-35mL/kg) Monitoring/Evaluations: f/u in 1w Electronically Signed by: Fannie John 06/18/23 14:39 Clinical Dietitian [address] [address]
== END ==
PROVIDERS: Family Provider Family Medicine; PCP Family Medicine; Referring Provider Family Medicine; Visit Provider Family Medicine
DX: F50.82 Avoidant/restrictive food intake disorder (principal); Z71.3 Dietary counseling and surveillance; Z93.1 Gastrostomy status; Z68.21 Body mass index [BMI] 21.0-21.9, adult
CPT/HCPCS: 97803

== ENCOUNTER 2024-08-24 15:47 | Emergency (ER) | payer OTHER, SELFPAY ==
[2024-08-24 15:51] VITALS: BP 146/65; PULSE 74; RESP 16; TEMP 36.9; O2SAT 99; BMI 19.2
[2024-08-24] MEDS: ONDANSETRON 4 MG/2 ML INJ IV (16:59)
[2024-08-24 17:03] LABS: Add Manual Diff / Slide Review NO; Basophils Absolute Auto 0 /uL (0-100); Basophils Percent Auto 0.9 % (0-2); Eosinophils Absolute Auto 0 /uL (0-450); Eosinophils Percent Auto 0.2 % (2-4); Hematocrit 37.9 % (36-46); Hemoglobin 12.7 g/dL (12.0-16.0); Lymphocytes Absolute Auto 700 /uL (1100-4500); Mean Corpuscular HGB Conc 33.6 % (30-36); Mean Corpuscular Hemoglobin 28.8 PG (26-34); Mean Corpuscular Volume 85.8 fL (80-100); Monocytes Absolute Auto 300 /uL (0-900); Monocytes Percent Auto 6.1 % (3-14); Neutrophils Absolute Auto 3900 /uL (1500-7000); Neutrophils Percent Auto 77.8 % (50-75); Platelet Count 198 X10^3/uL (150-400); Red Blood Cell Count 4.42 X10^6/uL (4.0-5.2); Red Cell Distribution Width 12.5 % (11.6-14.8)
[2024-08-24 17:07] LABS: Alanine Aminotransferase 29 IU/L (<35); Albumin 4.3 g/dL (3.5-5.0); Albumin Globulin Ratio 1.6 (1.0-2.8); Alkaline Phosphatase 57 U/L (38-126); Aspartate Aminotransferase 50 IU/L (14-36); Bilirubin Total 0.5 mg/dL (0.2-1.3); Blood Urea Nitrogen 9 mg/dL (7-17); Calcium 8.3 mg/dL (8.4-10.2); Carbon Dioxide 21 mmol/L (22-32); Chloride 118 mmol/L (98-107); Estimated Glomerular Filt Rate > 60 mL/min (>60); Globulin 2.7 g/dL (1.7-4.1); Glucose 71 mg/dL (70-100); HEMOLYSIS < 15 (0-50); Lipase 75 U/L (23-300); Potassium 3.4 mmol/L (3.4-5.1); Sodium 145 mmol/L (137-145)
--- NOTE | 2024-08-24 17:57 | ED.NAVMDI ---
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 Richardson of surgery, no longer followed by any particular technical services consultant, recalls prior stomach ulcer on upper endoscopy in the distant past, complains of nausea and vomiting with loose stool since 2:00 p.m. earlier today. She has had multiple episodes of retching and small amount of nonbloody emesis. Multiple episodes of loose stools, no black or red or mucoid appearance. She has not usually have problems with vomiting or diarrhea. She uses 4 times daily Jevity tube feeds, no change in her tube feeding regimen/agents. Denies trauma injury or new activities. No fevers or chills. No painful or frequent urination. Denies cough or shortness of breath. No recent travel, no recent antibiotics. No household or close contact exposures to persons with similar gastrointestinal symptoms. Related Data Home Medications Medication Instructions Recorded Confirmed dextroamphetamine-amphetamine ER 30 mg PO DAILY 11/30/22 12/29/22 30 mg 24hr capsule,extend release (Adderall XR) epinephrine 0.3 mg/0.3 mL 0.3 mg IM PRN PRN Allergic Reaction 11/30/22 12/29/22 injection, auto-injector (EpiPen 2-Dewey) gabapentin 100 mg capsule 100 mg PO TID 11/30/22 12/29/22 hydroxyzine HCl 10 mg tablet 10 mg PO QID 11/30/22 12/29/22 Allergies Allergy/AdvReac Type Severity Reaction Status Date / Time No Known Drug Allergies Allergy Verified 12/29/22 09:34 Patient History <Pascual Cuenca MD - Last Filed: 08/24/24 21:36> Social History household members: family Smoking Status: Never smoker alcohol intake: current Smoking Status: Never smoker alcohol intake frequency: holidays/special occasions only Exam <Pascual Cuenca MD - Last Filed: 08/24/24 21:36> Narrative Exam Narrative: GENERAL: Well-developed patient, in mild distress. HEAD: Atraumatic. Normocephalic. EYES: Pupils equal round and reactive. Extraocular motions intact. No scleral icterus. No injection or drainage. ENT: Nose without bleeding, purulent drainage. Throat without erythema, tonsillar hypertrophy or exudate. Airway patent. NECK: Trachea midline. Non tender CARDIOVASCULAR: Regular rate and rhythm without murmurs, gallops, or rubs. RESPIRATORY: Clear to auscultation. Breath sounds equal bilaterally. No wheezes, rales, or rhonchi. GASTROINTESTINAL: Abdomen soft, non-tender, nondistended. Left upper quadrant PEG site intact, no redness or purulence, nontender surrounding, no obvious ventral hernia. EXTREMITIES: No edema or joint tenderness. BACK: Nontender without deformity or crepitance. No flank tenderness. NEURO: AOx3. Motor functions grossly nonfocal SKIN: No rash or erythema of visible areas Initial Vital Signs Initial Vital Signs: Vital Signs Temperature 98.4 F 08/24/24 15:51 Pulse Rate 74 08/24/24 15:51 Respiratory Rate 16 08/24/24 15:51 Blood Pressure 146/65 H 08/24/24 15:51 Pulse Oximetry 99 08/24/24 15:51 Oxygen Delivery Method Room Air 08/24/24 15:51 <Susan Lozano DO - Last Filed: 08/24/24 21:33> Initial Vital Signs Initial Vital Signs: Vital Signs Temperature 98.4 F 08/24/24 15:51 Pulse Rate 74 08/24/24 15:51 Respiratory Rate 16 08/24/24 15:51 Blood Pressure 146/65 H 08/24/24 15:51 Pulse Oximetry 99 08/24/24 15:51 Oxygen Delivery Method Room Air 08/24/24 15:51 Course <Pascual Cuenca MD - Last Filed: 08/24/24 21:36> Orders Ordered: ED Orders 08/24/24 16:29 Complete Blood Count AUTO DIFF Stat Comprehensive Metabolic Panel Stat HCG Quantitative /Beta subunit Stat Lipase Stat 08/24/24 19:30 Urinalysis and Microscopic Stat Discontinued Medications Famotidine (Famotidine 20 Mg/2 Ml Vial) 20 mg IV NOW [facility] Last Admin: 08/24/24 18:35 Dose: 20 mg Documented By: GINNY Sodium Chloride (Normal Saline 0.9%) 1,000 mls @ 1,000 mls/hr IV BOLUS ONE Stop: 08/24/24 18:37 Last Infusion: 08/24/24 18:45 Dose: 0 mls/hr Documented By: Admin: 08/24/24 18:02 Dose: 1,000 mls/hr Documented By: GINNY Ondansetron HCl (Ondansetron 4 Mg/2 Ml Inj) 4 mg IV NOW ONE Stop: 08/24/24 16:55 Last Admin: 08/24/24 16:59 Dose: 4 mg Documented By: GINNY Vital Signs Vital signs: Vital Signs - 8 hr 08/24/24 15:51 08/24/24 20:04 Temperature 98.4 F 98.5 F Pulse Rate 74 67 Respiratory Rate 16 14 Blood Pressure 146/65 H 110/78 Pulse Oximetry 99 98 Oxygen Delivery Method Room Air Room Air <Susan Lozano, - Last Filed: 08/24/24 21:33> Orders Ordered: ED Orders 08/24/24 16:29 Complete Blood Count AUTO DIFF Stat Comprehensive Metabolic Panel Stat HCG Quantitative /Beta subunit Stat Lipase Stat 08/24/24 19:30 Urinalysis and Microscopic Stat Discontinued Medications Famotidine (Famotidine 20 Mg/2 Ml Vial) 20 mg IV NOW [facility] Last Admin: 08/24/24 18:35 Dose: 20 mg Documented By: GINNY Sodium Chloride (Normal Saline 0.9%) 1,000 mls @ 1,000 mls/hr IV BOLUS ONE Stop: 08/24/24 18:37 Last Infusion: 08/24/24 18:45 Dose: 0 mls/hr Documented By: Admin: 08/24/24 18:02 Dose: 1,000 mls/hr Documented By: GINNY Ondansetron HCl (Ondansetron 4 Mg/2 Ml Inj) 4 mg IV NOW ONE Stop: 08/24/24 16:55 Last Admin: 08/24/24 16:59 Dose: 4 mg Documented By: GINNY Vital Signs Vital signs: Vital Signs - 8 hr 08/24/24 15:51 08/24/24 20:04 Temperature 98.4 F 98.5 F Pulse Rate 74 67 Respiratory Rate 16 14 Blood Pressure 146/65 H 110/78 Pulse Oximetry 99 98 Oxygen Delivery Method Room Air Room Air MDM - Nausea/Vomiting/Diarrhea <Pascual Cuenca MD - Last Filed: 08/24/24 21:36> Lab Data Attestation: I reviewed the patient's lab results. Lab results narrative: White blood cell count 5000, hemoglobin 12.7, platelets adequate. Sodium 145, potassium 3.4, serum CO2 21 mildly decreased. BUN creatinine normal. Glucose 71. 08/24/24 16:29 08/24/24 16:29 Labs: Lab Results 08/24/24 08/24/24 Range/Units 16:29 19:30 WBC 5.0 (4.5-11.0) X10^3/uL RBC 4.42 (4.0-5.2) X10^6/uL Hgb 12.7 (12.0-16.0) g/dL Hct 37.9 (36-46) % MCV 85.8 (80-100) fL MCH 28.8 (26-34) PG MCHC 33.6 (30-36) % RDW 12.5 (11.6-14.8) % Plt Count 198 (150-400) X10^3/uL Neut % (Auto) 77.8 H (50-75) % Lymph % (Auto) 15.0 L (25-40) % [place] % (Auto) 6.1 (3-14) % Eos % (Auto) 0.2 L (2-4) % Baso % (Auto) 0.9 (0-2) % Neut # (Auto) 3900 (0080-6108) /uL Lymph # (Auto) 700 L (2201-2978) /uL [place] # (Auto) 300 (0-900) /uL Eos # (Auto) 0 (0-450) /uL Baso # (Auto) 0 (0-100) /uL Sodium 145 (137-145) mmol/L Potassium 3.4 (3.4-5.1) mmol/L Chloride 118 H (98-107) mmol/L Carbon Dioxide 21 L (22-32) mmol/L BUN 9 (7-17) mg/dL Creatinine 0.75 (0.52-1.04) mg/dL Estimated GFR > 60 (>60) mL/min BUN/Creatinine Ratio 12.0 (6-22) Glucose 71 (70-100) mg/dL Calcium 8.3 L (8.4-10.2) mg/dL Total Bilirubin 0.5 (0.2-1.3) mg/dL AST 50 H (14-36) IU/L ALT 29 (<35) IU/L Alkaline Phosphatase 57 (38-126) U/L Total Protein 7.0 (6.3-8.2) g/dL Albumin 4.3 (3.5-5.0) g/dL Globulin 2.7 (1.7-4.1) g/dL Albumin/Globulin Ratio 1.6 (1.0-2.8) Lipase 75 (23-300) U/L HCG, Quant < 2.39 mIU/mL Urine Color Yellow Urine Appearance Clear Urine pH 6.0 (4.5-8.0) Ur Specific [place] 1.020 (1.000-1.035) Urine Protein Negative (Negative) Urine Glucose (UA) Negative (Negative) g/dL Urine Ketones Trace H (NEGATIVE) Urine Occult Blood Negative (Negative) Urine Nitrate Negative (Negative) Urine Bilirubin Negative (NEGATIVE) Urine Urobilinogen 0.2 (0.2) E.U./dL Ur Leukocyte Esterase Negative (NEGATIVE) Urine RBC None seen (0-5/HPF) Urine WBC 0-1/hpf (0-5/HPF) Ur Squamous Epith Cells 0-1 /hpf (0-5/HPF) Urine Bacteria None seen (None) Ur Culture Indicated? Cult not indicated Vol Urine Centrifuged 10ml (spun) Point of Care Testing Test Results Negative Urine Dip Bedside Urine Glucose Negative Bedside Urine Bilirubin - Negative Bedside Urine Ketone - Negative Urine Specific [place] 1.025 Bedside Urine Occult Blood - Negative Bedside Urine pH 6.0 Bedside Urine Protein - Negative Bedside Urine Urobilinogen - Negative Bedside Urine Nitrite - Negative Bedside Urine Leukocytes - Negative Esterase MDM Narrative Medical decision making narrative: 23-year-old female with history of ?avoidant and restrictive food intake disorder? status post remote PEG tube placement 2 years ago, now with nausea vomiting diarrhea of multiple episodes since earlier this afternoon. Afebrile on triage. Thin appearing, abdomen nondistended, peg site unremarkable, without redness or tenderness or purulence. Screening labs sent. IV fluids, IV Zofran, IV Pepcid. Serum screen tests unremarkable. Urinalysis pending. Urine HCG pending, no urine produced, serum hCG ordered. Stool studies GI panel requested, if stool specimen is collected. Further observe for UA, hCG results, and response to IV therapies/fluids. No abdominal tenderness, no fever, normal WBC. We will hold advanced abdominopelvic imaging for now. Patient agrees. Signed out to Dr. Lozano 194 Dr. Lozano patient signed out to me by Dr. Cuenca I have seen evaluated patient myself. Patient ambulatory to the restroom she gave a urine sample negative for UTI. Blood work has been reviewed overall reassuring. No leukocytosis no electrolyte abnormality RICHARD does have some hyper chloride of 118 pregnancies negative. No bowel movement here in the ED. does tolerate p.o. fluids at this time suspect viral illness <Susan Lozano, - Last Filed: 08/24/24 21:33> Lab Data Labs: Lab Results 08/24/24 08/24/24 Range/Units 16:29 19:30 WBC 5.0 (4.5-11.0) X10^3/uL RBC 4.42 (4.0-5.2) X10^6/uL Hgb 12.7 (12.0-16.0) g/dL Hct 37.9 (36-46) % MCV 85.8 (80-100) fL MCH 28.8 (26-34) PG MCHC 33.6 (30-36) % RDW 12.5 (11.6-14.8) % Plt Count 198 (150-400) X10^3/uL Neut % (Auto) 77.8 H (50-75) % Lymph % (Auto) 15.0 L (25-40) % [place] % (Auto) 6.1 (3-14) % Eos % (Auto) 0.2 L (2-4) % Baso % (Auto) 0.9 (0-2) % Neut # (Auto) 3900 (5296-3125) /uL Lymph # (Auto) 700 L (7703-7870) /uL [place] # (Auto) 300 (0-900) /uL Eos # (Auto) 0 (0-450) /uL Baso # (Auto) 0 (0-100) /uL Sodium 145 (137-145) mmol/L Potassium 3.4 (3.4-5.1) mmol/L Chloride 118 H (98-107) mmol/L Carbon Dioxide 21 L (22-32) mmol/L BUN 9 (7-17) mg/dL Creatinine 0.75 (0.52-1.04) mg/dL Estimated GFR > 60 (>60) mL/min BUN/Creatinine Ratio 12.0 (6-22) Glucose 71 (70-100) mg/dL Calcium 8.3 L (8.4-10.2) mg/dL Total Bilirubin 0.5 (0.2-1.3) mg/dL AST 50 H (14-36) IU/L ALT 29 (<35) IU/L Alkaline Phosphatase 57 (38-126) U/L Total Protein 7.0 (6.3-8.2) g/dL Albumin 4.3 (3.5-5.0) g/dL Globulin 2.7 (1.7-4.1) g/dL Albumin/Globulin Ratio 1.6 (1.0-2.8) Lipase 75 (23-300) U/L HCG, Quant < 2.39 mIU/mL Urine Color Yellow Urine Appearance Clear Urine pH 6.0 (4.5-8.0) Ur Specific [place] 1.020 (1.000-1.035) Urine Protein Negative (Negative) Urine Glucose (UA) Negative (Negative) g/dL Urine Ketones Trace H (NEGATIVE) Urine Occult Blood Negative (Negative) Urine Nitrate Negative (Negative) Urine Bilirubin Negative (NEGATIVE) Urine Urobilinogen 0.2 (0.2) E.U./dL Ur Leukocyte Esterase Negative (NEGATIVE) Urine RBC None seen (0-5/HPF) Urine WBC 0-1/hpf (0-5/HPF) Ur Squamous Epith Cells 0-1 /hpf (0-5/HPF) Urine Bacteria None seen (None) Ur Culture Indicated? Cult not indicated Vol Urine Centrifuged 10ml (spun) Point of Care Testing Test Results Negative Urine Dip Bedside Urine Glucose Negative Bedside Urine Bilirubin - Negative Bedside Urine Ketone - Negative Urine Specific [place] 1.025 Bedside Urine Occult Blood - Negative Bedside Urine pH 6.0 Bedside Urine Protein - Negative Bedside Urine Urobilinogen - Negative Bedside Urine Nitrite - Negative Bedside Urine Leukocytes - Negative Esterase MDM Narrative Medical decision making narrative: 23-year-old female with history of ?avoidant and restrictive food intake disorder? status post remote PEG tube placement 2 years ago, now with nausea vomiting diarrhea of multiple episodes since earlier this afternoon. Afebrile on triage. Thin appearing, abdomen nondistended, peg site unremarkable, without redness or tenderness or purulence. Screening labs sent. IV fluids, IV Zofran, IV Pepcid. Serum screen tests unremarkable. Urinalysis pending. Urine HCG pending, no urine produced, serum hCG ordered. Stool studies GI panel requested, if specimen collected. Further observe for UA, hCG results, and response to IV therapies/fluids. We will hold on CT abdomen/pelvis imaging for now. Patient agreeable. Signed out to Dr. Lozano 1939 Dr. Lozano patient signed out to me by Dr. Cuenca I have seen evaluated patient myself. Patient ambulatory to the restroom she gave a urine sample negative for UTI. Blood work has been reviewed overall reassuring. No leukocytosis no electrolyte abnormality RICHARD does have some hyper chloride of 118, pregnancies negative. No bowel movement here in the ED. does tolerate p.o. fluids at this time suspect viral illness. She is ambulatory she overall appears well abdomen is soft nontender. She was worried about refeeding syndrome. She reports that her tube feeds have not been as scheduled as they have previously due to change of jobs and moving. No evidence of refeeding syndrome Discharge Plan Departure Patient Disposition: Home Clinical Impression: Gastroenteritis Instructions: DI for Viral Gastroenteritis -- Adult Activity Restrictions/Additional Instructions: *You have been diagnosed with viral illness *What to do: At this time increase fluids okay to use feeding tube *Continue to take medications as directed *Follow up with your primary care provider in 2-3 days or call [phone] *Return to ER if you should have persistent abdominal pain nausea vomiting diarrhea or any new, worsening or concerning symptoms Prescriptions: No Action gabapentin 100 mg capsule 100 mg PO TID Patient Comments: TAKE 1 CAPSULE BY MOUTH THREE TIMES DAILY dextroamphetamine-amphetamine [Adderall XR] 30 mg capsule,extended release 24hr 30 mg PO DAILY Patient Comments: Take 1 capsule by mouth once a day hydroxyzine HCl 10 mg tablet 10 mg PO QID Patient Comments: Take 1 tablet by mouth four times a day May be sedating. epinephrine [EpiPen 2-Dewey] 0.3 MG/0.3 ML auto-injector 0.3 mg IM PRN PRN (Reason: Allergic Reaction) Referrals: Ranjit Jorge MD [Primary Care Provider] - Stand Alone Forms: Patient Portal/API/Survey
[2024-08-24] MEDS: SODIUM CHLORIDE 0.9% 1,000 ML 1000 ML IV (18:02)
[2024-08-24] MEDS: FAMOTIDINE 20 MG/2 ML VIAL IV (18:35)
[2024-08-24 18:56] LABS: HCG Quantitative /Beta subunit < 2.39 mIU/mL
[2024-08-24 19:40] LABS: Appearance Urine UA CLEAR; Bilirubin Urine UA NEGATIVE (NEGATIVE); Color Urine UA YELLOW; Glucose Urine UA NEGATIVE (Negative); Ketones Urine UA TRACE (NEGATIVE); Leukocyte Esterase Urine UA NEGATIVE (NEGATIVE); Nitrite Urine UA NEGATIVE (Negative); Occult Blood Urine UA NEGATIVE (Negative); Protein Urine UA NEGATIVE (Negative); Urobilinogen Urine UA 0.2 E.U./dL (0.2)
[2024-08-24 19:48] LABS: Bacteria Urine None Seen; Culture Indicated Urine Cult Not Indicated; RBC Urine None Seen (0-5/HPF); Squamous Epithelial Cell Urine 0-1 /HPF (0-5/HPF); Urine Volume 10mL (spun); WBC Urine 0-1/HPF (0-5/HPF)
[2024-08-24 20:04] VITALS: BP 110/78; PULSE 67; RESP 14; TEMP 36.9; O2SAT 98
== END 2024-08-24 20:06 | disposition home or self-care (01) ==
PROVIDERS: Emergency Medicine; Emergency Provider Emergency Medicine; Family Provider Family Medicine; PCP Family Medicine
DX: K52.9 Noninfective gastroenteritis and colitis, unspecified (principal); Z93.1 Gastrostomy status; Z86.59 Personal history of other mental and behavioral disorders
CPT/HCPCS: 36415; 80053; 81001; 81003; 81025; 83690; 84702; 85025; 96361; 96374; 96375; 99284; J2405